=== PATIENT | male | born 2000 | race Caucasian/White ===

== ENCOUNTER 2024-06-23 19:18 | Emergency (ER) | payer OTHER ==
[~2024-06-23] VITALS: Ht 182.9 cm; Wt 93.2 kg
[2024-06-23 23:30] VITALS: BP 124/68; O2SAT 99
[2024-06-23] MEDS: IBUPROFEN 800 MG TAB PO ONE (23:37)
[2024-06-23 23:56] VITALS: TEMP 97.6
== END 2024-06-23 23:50 | disposition home or self-care (01) ==
LOC: M ED 19:18 → EDBD 19:18 → M ED 23:50
DX: S93.401A Sprain of unspecified ligament of right ankle, initial encounter (principal); S50.811A Abrasion of right forearm, initial encounter; S50.812A Abrasion of left forearm, initial encounter; V29.408A Other motorcycle driver injured in collision with unspecified motor vehicles in traffic accident, initial encounter; Y92.9 Unspecified place or not applicable; Y93.9 Activity, unspecified; Y99.9 Unspecified external cause status; Z88.2 Allergy status to sulfonamides